=== PATIENT | male | born 1980 | race Caucasian/White ===

== ENCOUNTER 2023-12-29 23:22 | Emergency (ER) | payer OTHER, SELFPAY ==
--- NOTE | ~2023-12-29 | XR_ITS ---
EXAMINATION: XR knee LT min 4V DATE: 12/30/2023 00:08 INDICATION: Left knee pain. TECHNIQUE: 4 views of left knee were obtained. COMPARISON: None. FINDINGS: Bone alignment is normal. No fracture. Joint spaces are normal. No knee joint effusion. IMPRESSION: 1. Normal left knee. Reviewed, dictated and finalized at location A. IMPRESSION: 1. Normal left knee.
[2023-12-29 23:21] VITALS: BP 107/78; PULSE 74; RESP 18; TEMP 36.9; O2SAT 97
--- NOTE | 2023-12-30 00:31 | ED.EXTPRO ---
HPI - Extremity Problem General Chief complaint: Extremity Problem,Nontraumatic Stated complaint: GROIN PAIN TO KNEE X 2 DAYS Time Seen by Provider: 12/29/23 23:47 History of Present Illness HPI Narrative: Patient is a 43-year-old male who presents to the emergency department this evening complaining of left leg and left knee pain. Patient states that the pain started 2 days ago when he was getting up from a seated position. Since then, patient has been having pain to the back of his left knee that radiates up his leg all the way to his groin region. Patient has no left groin pain, no left hip pain and no upper thigh pain. Patient admits that the pain originates at the back of his left knee and has tenderness there and radiates upward. Patient denies any recent falls or trauma to his left knee and denies any history of DVT. Patient is currently denying any medical history, however, he admits that he has not seen a primary care physician in a long time. He is currently denying any additional symptoms at this time including any left lower extremity weakness, numbness and/or tingling. There are no other modifying, alleviating, or precipitating factors. Related Data Allergies Allergy/AdvReac Type Severity Reaction Status Date / Time codeine Allergy Other Verified 12/29/23 23:29 Penicillins Allergy Anaphylaxis Verified 12/29/23 23:29 Sulfa (Sulfonamide Allergy Swelling Verified 12/29/23 23:29 Antibiotics) Review of Systems Review of Systems: All systems are reviewed and are negative unless stated otherwise in the HPI. PMFSH Comments Denies any past medical history, denies any past surgical history, and denies any pertinent family history. Exam Narrative: General: Alert, awake, afebrile, in no acute distress. HEENT: PERRL, no rhinorrhea, no post nasal drip, oropharynx clear. Neck: Trachea midline, no JVD, no lymphadenopathy. Cardiovascular: Regular rate and rhythm, no murmurs, rubs or gallops, no peripheral edema. Respiratory: Clear to auscultation bilaterally, no tachypnea, no wheezing, no rhonchi, no rubs, no respiratory distress. Abdomen: Soft, nontender, nondistended, no rebound, no guarding, no peritoneal signs. Musculoskeletal: No joint swelling or deformity, normal muscle tone, intact left lower extremity hip flexion and knee extension, negative anterior and posterior drawer tests, negative Philip, tenderness to palpation over the posterior knee along the insertion of the semitendinous muscle. 5/5 motor strength in the bilateral lower extremity, patient is neurovascularly intact. Skin: No rashes or petechia, no signs of infection. Psychiatric: Alert and oriented, normal behavior and judgment for situation. Neurological: Alert and oriented to person, place, and time. Follows all commands. No focal deficits, speech is clear and fluent. Course Vital Signs Vital signs: Vital Signs Temperature 98.4 F 12/29/23 23:21 Pulse Rate 74 12/29/23 23:21 Respiratory Rate 18 12/29/23 23:21 Blood Pressure 107/78 12/29/23 23:21 Pulse Oximetry 97 12/29/23 23:21 Oxygen Delivery Room Air 12/29/23 23:21 Temperature 98.4 F 12/29/23 23:21 Pulse Rate 74 12/30/23 00:53 Respiratory Rate 16 12/30/23 00:53 Blood Pressure 110/78 12/30/23 00:53 Pulse Oximetry 98 12/30/23 00:53 Oxygen Delivery Room Air 12/29/23 23:21 MDM - Extremity (Nontraumatic) MDM Narrative Medical decision making narrative: The patient was evaluated by myself in the emergency department. History is obtained from patient who is an independent historian and physical exam was performed. External medical records were reviewed at this time. IV was established and pertinent tests were ordered. Patient was administered 15 mg of IV Toradol. Imaging studies obtained included left knee x-ray which was independently interpreted by me revealing no acute process, which is pending final radiology interpretation. Differentia
[2023-12-30] MEDS: KETOROLAC 15 MG/ML VIAL (*BKC) IV PUSH (00:36)
[2023-12-30 00:53] VITALS: BP 110/78; PULSE 74; RESP 16; O2SAT 98
== END 2023-12-30 01:14 | disposition home or self-care (01) ==
PROVIDERS: Emergency Provider Emergency Medicine
DX: M25.562 Pain in left knee (principal)
CPT/HCPCS: 73564; 96374; 99284; J1885